=== PATIENT | male | born 1995 | race Caucasian/White ===

== ENCOUNTER → 2016-10-17 | Outpatient (CLI) | payer OTHER ==
--- NOTE | ~2016-10-17 | CR230 ---
[facility] A Service of [facility] RADIOLOGY TEXT RESULTS PATIENT: NICOLA STEEL LOCATION: [facility] : [birth year] UNIT #: [id number] AGE: [address]: LAVON NUNN SEX: M ORDER DR: [id number] [place] [id number] [facility]. [place], [place] [address] [id number] O MR#: [id number] Acc #: [id number] NAME: NICOLA STEEL : 1995 SEX: M STUDY DATE/TIME: 10/17/2016 11:53 UNIT: [facility] ROOM: STUDY DESCRIPTION: CR Shoulder Min 2 View Rt Attending Physician: Lavon Nunn M.D. Referring Physician: Lavon Nunn M.D. Ordering Physician: Lavon Nunn M.D. Primary Care Physician: Lavon Nunn M.D. MEDICAL IMAGING REPORT This report is preliminary unless electronic signature is present EXAM Right shoulder 10/17/2016 INDICATIONS 21-year-old male with right shoulder pain for 2 years. History of bow hunting. 3 views of the right shoulder COMPARISON STUDIES No comparisons FINDINGS There is no acute fracture or dislocation. No shoulder separation injury. There is minimal subluxation of the distal clavicle with respect to the acromion by a vertical distance of about 6 mm. There is no evidence of widening of the acromioclavicular joint. This is a nonspecific finding. IMPRESSION Suggestion of subtle subluxation of the AC joint but no shoulder separation, dislocation or fracture. Dictated by... Otf Munguia M.D. THIS IS AN ELECTRONICALLY VERIFIED REPORT Otf Munguia M.D. at 10/22/2016 9:50 AM Ji TD: 10/17/2016 18:14 JOB #: [id number] MEDICAL IMAGING REPORT [facility] Service [facility] RADIOLOGY TEXT RESULTS PATIENT: NICOLA STEEL LOCATION: [facility] : [birth year] UNIT #: [id number] AGE: [address]: LAVON NUNN SEX: M ORDER DR: Page 1 of 1 COPY
--- NOTE | ~2016-10-17 | CR170 ---
[facility] A Service of [facility] & [facility] RADIOLOGY TEXT RESULTS PATIENT: NICOLA STEEL LOCATION: [facility] : [birth year] UNIT #: [id number] AGE: [address]: LAVON NUNN SEX: M ORDER DR: [id number] [facility] [address]. [place], [place] [address] [id number] O MR#: [id number] Acc #: [id number] NAME: NICOLA STEEL : 1995 SEX: M STUDY DATE/TIME: 10/17/2016 11:52 UNIT: [facility] ROOM: STUDY DESCRIPTION: CR Knee 2 Views Rt Attending Physician: Lavon Nunn M.D. Referring Physician: Lavon Nunn M.D. Ordering Physician: Lavon Nunn M.D. Primary Care Physician: Lavon Nunn M.D. MEDICAL IMAGING REPORT This report is preliminary unless electronic signature is present EXAM Right knee 2 views 10/17/2016 INDICATIONS 21-year-old male with bilateral knee pain for 5 years. No known injury. 2 views of the right knee were performed. COMPARISON STUDIES We have no comparisons. FINDINGS The examination is negative. There is no acute fracture, significant degenerative change or joint effusion. 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 IMPRESSION Negative. Dictated by... Otf Munguia M.D. THIS IS AN ELECTRONICALLY VERIFIED REPORT Otf Munguia M.D. at 10/22/2016 9:50 AM Ji TD: 10/17/2016 18:06 JOB #: [id number] MEDICAL IMAGING REPORT Page 1 of 1 COPY
--- NOTE | ~2016-10-17 | CR169 ---
[facility] A Service of [facility] & [facility] RADIOLOGY TEXT RESULTS PATIENT: NICOLA STEEL LOCATION: [facility] : [birth year] UNIT #: [id number] AGE: [address]: LAVON NUNN SEX: M ORDER DR: [id number] [facility] [address] [place], [place] [address] [id number] O MR#: [id number] Acc #: [id number] NAME: NICOLA STEEL : 1995 SEX: M STUDY DATE/TIME: 10/17/2016 11:52 UNIT: [facility] ROOM: STUDY DESCRIPTION: CR Knee 2 Views Lt Attending Physician: Lavon Nunn M.D. Referring Physician: Lavon Nunn M.D. Ordering Physician: Lavon Nunn M.D. Primary Care Physician: Lavon Nunn M.D. MEDICAL IMAGING REPORT This report is preliminary unless electronic signature is present EXAM Left knee 2 views 10/17/2016 INDICATIONS 21-year-old male with pain in both knees for 5 years. No known injury. 2 views of the left knee COMPARISON STUDIES No comparisons FINDINGS The examination is negative. No acute fracture, significant degenerative change or joint effusion. 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 IMPRESSION Negative. Dictated by... Otf Munguia M.D. THIS IS AN ELECTRONICALLY VERIFIED REPORT Otf Munguia M.D. at 10/22/2016 9:50 AM Ji TD: 10/17/2016 18:02 JOB #: [id number] MEDICAL IMAGING REPORT Page 1 of 1 COPY
== END | disposition home or self-care (01) ==
LOC: CRAD 11:29
DX: M25.511 Pain in right shoulder (principal); M25.561 Pain in right knee; M25.562 Pain in left knee
CPT/HCPCS: 73030; 73560